=== PATIENT | female | born 1950 | race Caucasian/White ===

== ENCOUNTER 2021-04-14 14:31 | Emergency (ER) | payer OTHER, SELFPAY ==
[~2021-04-14] VITALS: Ht 157.5 cm; Wt 63.5 kg
[2021-04-14 15:35] VITALS: BP_SYST 156
--- NOTE | 2021-04-14 16:00 | NUR ---
Pt observed leaving with family. Pt LWBS.
== END 2021-04-14 16:00 | disposition left against medical advice (07) ==
LOC: SED 14:31
DX: R06.02 Shortness of breath (principal); Z53.21 Procedure and treatment not carried out due to patient leaving prior to being seen by health care provider

== ENCOUNTER → 2021-04-15 | Emergency (ER) | payer OTHER, SELFPAY ==
[~2021-04-15] VITALS: Ht 167.6 cm; Wt 69.4 kg
[~2021-04-15] MED LIST: CASIRIVIMAB 600 MG, IMDEVIMAB 600 MG in NS 250 ML IV ONE
[2021-04-15 09:09] VITALS: BP_SYST 140
[2021-04-15 10:19] LABS: BASOPHILS % (AUTO) 0.3 % (0.0-2.0); EOSINOPHILS # (AUTO) 0.1 K/uL (0.0-0.4); EOSINOPHILS % (AUTO) 0.8 % (0.0-4.0); HEMATOCRIT 39.7 % (36-48); HEMOGLOBIN 13.2 g/dL (12.0-16.0); LYMPHOCYTES # (AUTO) 0.8 K/uL (1.0-5.5); LYMPHOCYTES % (AUTO) 11.7 % (20.5-51.5); MEAN CORPUSCULAR HEMOGLOBIN 29 pg (27-31); MEAN CORPUSCULAR HGB CONC 33 % (32-36); MEAN CORPUSCULAR VOLUME 86 fL (79.0-98.0); MONOCYTES # (AUTO) 0.7 K/uL (0.0-1.0); MONOCYTES % (AUTO) 9.4 % (1.7-9.3); NEUTROPHILS # (AUTO) 5.4 K/uL (1.8-7.7); NEUTROPHILS % (AUTO) 77.8 % (40.0-70.0); PLATELET COUNT (AUTO) 213 K/uL (130-430); RED CELL DISTRIBUTION WIDTH 13.2 % (9.0-15.0)
[2021-04-15 10:30] LABS: CREATININE 0.6 mg/dL (0.55-1.30); POTASSIUM 4.4 mmol/L (3.5-5.1)
[2021-04-15 10:36] LABS: ALBUMIN 3.1 g/dL (3.4-4.8); TOTAL BILIRUBIN 0.4 mg/dL (0.0-1.0)
[2021-04-15 11:05] LABS: C-REACTIVE PROTEIN QUANT 18.7 mg/dL (0-0.5)
[2021-04-15 12:43] VITALS: BP_SYST 141
== END | disposition home or self-care (01) ==
LOC: SED 08:07
DX: U07.1 COVID-19 (principal)
CPT/HCPCS: 36415; 71045; 80053; 83605; 83880; 85025; 86140; 87426; 99284; J7050; 99285

== ENCOUNTER 2022-07-09 13:44 | Emergency (ER) | payer OTHER ==
[~2022-07-09] VITALS: Ht 162.6 cm; Wt 62.6 kg
[2022-07-09 13:50] VITALS: BP_SYST 139
[2022-07-09 15:39] LABS: BASOPHILS % (AUTO) 0.2 % (0.0-2.0); EOSINOPHILS # (AUTO) 0.1 K/uL (0.0-0.4); EOSINOPHILS % (AUTO) 0.7 % (0.0-4.0); HEMATOCRIT 42.4 % (36-48); HEMOGLOBIN 14.4 g/dL (12.0-16.0); LYMPHOCYTES % (AUTO) 9.7 % (20.5-51.5); MEAN CORPUSCULAR HEMOGLOBIN 30 pg (27-31); MEAN CORPUSCULAR HGB CONC 34 % (32-36); MEAN CORPUSCULAR VOLUME 88 fL (79.0-98.0); MONOCYTES # (AUTO) 0.7 K/uL (0.0-1.0); MONOCYTES % (AUTO) 6.1 % (1.7-9.3); NEUTROPHILS % (AUTO) 83.3 % (40.0-70.0); PLATELET COUNT (AUTO) 231 K/uL (130-430); WHITE BLOOD COUNT (AUTO) 10.8 K/uL (4.8-10.8)
[2022-07-09 15:54] LABS: ALANINE AMINOTRANSFERASE 87 U/L (12-78); ALBUMIN 3.6 g/dL (3.4-4.8); ANION GAP 8 (5-15); ASPARTATE AMINOTRANSFERASE 143 U/L (10-37); CALCIUM 9.8 mg/dL (8.4-11.0); CHLORIDE 103 mmol/L (98-107); CREATININE 0.87 mg/dL (0.55-1.30); GLUCOSE 127 mg/dL (70-99); LIPASE 170 U/L (73-393); TOTAL BILIRUBIN 0.7 mg/dL (0.0-1.0); UREA NITROGEN, BLOOD 18 mg/dL (8-21)
[2022-07-09] MEDS ORDERED: MAG HYDROX/AL HYDROX/SIMETH 30 ML, DICYCLOMINE HCL 20 MG, LIDOCAINE VISCOUS 2% 15ML (PO... PO ONE ×3 (17:45)
[2022-07-09] MEDS ORDERED: SUCR1TAB2 PO (17:53)
[2022-07-09] MEDS ORDERED: OMEP40CA20 PO (17:53)
[2022-07-09] MEDS ORDERED: MAG355OR21 PO (17:53)
[2022-07-09 18:22] VITALS: BP_SYST 126
== END 2022-07-09 18:22 | disposition home or self-care (01) ==
LOC: SED 13:44
DX: K29.00 Acute gastritis without bleeding (principal); R10.13 Epigastric pain; R74.01 Elevation of levels of liver transaminase levels; I10 Essential (primary) hypertension; D41.4 Neoplasm of uncertain behavior of bladder; K21.9 Gastro-esophageal reflux disease without esophagitis; Z79.899 Other long term (current) drug therapy
CPT/HCPCS: 99284; 76705; 80053; 83690; 85025; 84484; 36415; 93005; J2001